=== PATIENT | male | born 1995 | race Caucasian/White ===

== ENCOUNTER 2017-01-13 17:11 | Emergency (ER) | payer OTHER ==
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
== END 2017-01-13 18:15 | disposition home or self-care (01) ==
LOC: ERS 17:11
DX: S83.92XA Sprain of unspecified site of left knee, initial encounter (principal); F17.210 Nicotine dependence, cigarettes, uncomplicated; W22.8XXA Striking against or struck by other objects, initial encounter
CPT/HCPCS: 99283

== ENCOUNTER 2017-07-08 11:39 | Emergency (ER) | payer OTHER ==
--- NOTE | 2017-07-08 13:11 | RAD ---
LUMBAR SPINE RADIOGRAPHS THREE VIEWS: 07/08/2017 PROVIDED CLINICAL HISTORY: Back pain. COMPARISON: 12/12/2016 FINDINGS: Five lin-cyp-foccjhl lumbar type vertebral bodies are present. Lumbar alignment appears normal. Romi tebral body heights appear preserved. Pedicles appear intact. No lytic or blastic lesions are radio graphically apparent. IMPRESSION: No radiographic evidence for an acute osseous abnormality. POS: [facility]
[2017-07-08] MEDS ORDERED: Ketorolac Tromethamine 30 MG/ML VIAL ONE (13:22)
== END 2017-07-08 13:57 | disposition home or self-care (01) ==
LOC: ERS 11:39
DX: S33.5XXA Sprain of ligaments of lumbar spine, initial encounter (principal); F17.210 Nicotine dependence, cigarettes, uncomplicated; X50.1XXA Overexertion from prolonged static or awkward postures, initial encounter
CPT/HCPCS: 72100; 96372; 99406; J1885

== ENCOUNTER 2017-07-29 14:56 | Outpatient (CLI) | payer OTHER ==
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
== END 2017-07-29 14:57 | disposition home or self-care (01) ==
LOC: SCSMRI 14:56
PROVIDERS: ATTEND Orthopaedic Surgery
DX: M54.17 Radiculopathy, lumbosacral region (principal)
CPT/HCPCS: 72148

== ENCOUNTER 2019-05-24 11:03 | Emergency (ER) | payer OTHER ==
--- NOTE | 2019-05-24 11:45 | RAD ---
XR Elbow Lt 4 View STANDARD INDICATION: Elbow pain and injury FINDINGS: Bones: No acute fracture or subluxation is evident.. Joints: No joint capsular distention. Radiocapitellar alignment appears within normal limits. Soft tissues: No radiopaque foreign body is evident. IMPRESSION: No acute osseous abnormality.
== END 2019-05-24 12:17 | disposition home or self-care (01) ==
LOC: ERS 11:03
DX: S50.02XA Contusion of left elbow, initial encounter (principal); F17.210 Nicotine dependence, cigarettes, uncomplicated; W18.30XA Fall on same level, unspecified, initial encounter
CPT/HCPCS: 29105

== ENCOUNTER 2020-03-27 19:17 | Emergency (ER) | payer OTHER ==
[2020-03-27 20:36] LABS: Bilirubin Negative (Negative); Blood, Urine Negative (Negative); Clarity Clear (Clear); Glucose, Urine (Dipstick) Normal (Negative); Ketone, Urine 40 mg/dL (Negative); Leukocyte Negative Leu/uL (Negative); Nitrite Negative (Negative); Protein, Urine (Dipstick) Negative (Neg-Trace); Specific Gravity, Urine 1.005 (1.002-1.036); Urobilinogen Normal mg/dL (Less than 2)
[2020-03-27 20:44] LABS: #Basophils 0.1 thou/uL (0.0-0.2); #Lymphocytes 1.8 thou/uL (1.20-3.40); #Monocytes 0.8 thou/uL (0.11-0.59); #Neutrophils 8.4 thou/uL (1.40-6.50); %Basophils 0.5 % (0.0-1.0); %Eosinophils 0.3 % (0.0-10.0); %Lymphocytes 16.4 % (21.0-51.0); %Monocytes 7.5 % (0.0-10.0); %Neutrophils 75.3 % (42.0-75.0); Hemoglobin 16.3 g/dL (14.0-18.0); Mean Corpuscular HGB CONC 35.3 g/dL (32.0-36.0); Mean Corpuscular Volume 93.7 fL (78.0-98.0); Mean Platelet Volume 7.8 fL (7.4-10.4); Platelet Count 204 thou/uL (130-400); RBC Distribution Width 11.1 % (11.5-14.5); Red Blood Cell (RBC) Count 4.93 mill/uL (4.70-6.10); White Blood Cell (WBC) Count 11.1 thou/uL (4.8-10.8)
[2020-03-27 21:04] LABS: ALT (SGPT) 19 U/L (8-55); AST (SGOT) 16 U/L (5-34); Albumin 4.6 g/dL (3.5-5.0); Alkaline Phosphatase 75 U/L (40-110); Anion Gap 17 mmol/L (10-20); BUN (Urea Nitrogen) 9 mg/dL (8.9-20.6); Bilirubin, Total 0.7 mg/dL (0.2-1.2); Calc. Creatinine Clearance 0 mL/min (70-130); Calcium 9.4 mg/dL (7.8-10.44); Carbon Dioxide 24 mmol/L (22-29); Chloride 101 mmol/L (98-107); Globulin 2.5 g/dL (2.4-3.5); Glucose 94 mg/dL (70-105); Potassium 3.7 mmol/L (3.5-5.1); Protein, Total 7.1 g/dL (6.0-8.3); Sodium 138 mmol/L (136-145)
[2020-03-27] MEDS ORDERED: Ketorolac Tromethamine 30 MG/ML VIAL ONE (22:27)
[2020-03-27] MEDS ORDERED: Promethazine 25 MG TAB ONE (22:27)
--- NOTE | 2020-03-27 23:20 | CT ---
CT Abdomen Pelvis WO Con History: Bilateral flank pain Comparison: None. Findings: Lung bases are clear. No pericardial effusion. Liver, spleen, pancreas, adrenal glands are unremarkable. Sludge within the gallbladder. Nonobstructing 3 mm left interpolar and inferior pole calculi. Nonobstructing 3 mm right inferior grayson e calculus. Appendix is visualized and is normal. No hydroureteronephrosis. No stones within the urinary bladder. No free intraperitoneal gas or fluid. Mild increase in number of ileocolic mesenteric lymph nodes. No acute osseous abnormality. Noncontrast evaluation of the liver, spleen, pancreas are unremarkable. Impression: 1. Ileocolic mesenteric adenitis. 2. Normal appendix. 3. Nonobstructing bilateral renal calculi. 4. Gallbladder sludge.
== END 2020-03-27 23:50 | disposition home or self-care (01) ==
LOC: ERS 19:17
DX: I88.0 Nonspecific mesenteric lymphadenitis (principal); F17.210 Nicotine dependence, cigarettes, uncomplicated
CPT/HCPCS: 36415; 74176; 80053; 81003; 85025; 96372; J1885; Q0169

== ENCOUNTER 2024-02-19 03:01 | Emergency (ER) | payer BC, SELFPAY ==
[2024-02-19] MEDS ORDERED: Ibuprofen 200 MG TAB ONE (03:37)
[2024-02-19] MEDS ORDERED: Bacitracin 1 PK ONE (03:55)
== END 2024-02-19 04:07 | disposition home or self-care (01) ==
LOC: ERS 03:01
DX: S62.102A Fracture of unspecified carpal bone, left wrist, initial encounter for closed fracture (principal); F17.210 Nicotine dependence, cigarettes, uncomplicated; W22.01XA Walked into wall, initial encounter
CPT/HCPCS: 99283

== ENCOUNTER 2024-02-22 16:55 | Emergency (ER) | payer SELFPAY ==
[2024-02-22] MEDS ORDERED: Ketorolac Tromethamine 30 MG (1 mL) VIAL ONE (18:30)
[2024-02-22] MEDS ORDERED: Boostrix 0.5 ML (Tdap) VIAL (>/=7 yrs of age) ONE (18:31)
== END 2024-02-22 19:07 | disposition home or self-care (01) ==
LOC: ERS 16:55
DX: S62.341A Nondisplaced fracture of base of second metacarpal bone, left hand, initial encounter for closed fracture (principal); S62.313A Displaced fracture of base of third metacarpal bone, left hand, initial encounter for closed fracture; S62.142A Displaced fracture of body of hamate [unciform] bone, left wrist, initial encounter for closed fracture; F17.210 Nicotine dependence, cigarettes, uncomplicated; X58.XXXA Exposure to other specified factors, initial encounter; Z23 Encounter for immunization
CPT/HCPCS: 29125; 90471; 90715; 96372; J1885